=== PATIENT | female | born 1970 | race Caucasian/White ===

== ENCOUNTER → 2017-12-19 | Outpatient (CLI) | payer OTHER | LOC: M.ULTRA 14:58 | DX: N60.02 Solitary cyst of left breast (principal) ==

== ENCOUNTER → 2018-12-18 | Outpatient (CLI) | payer OTHER | LOC: M.RAD 11-29 12:13 → M.ULTRA 13:55 → M.RAD 14:50 → M.ULTRA 12-19 11:30 → M.RAD 12-19 13:20 | DX: Z12.31 Encounter for screening mammogram for malignant neoplasm of breast (principal); N39.3 Stress incontinence (female) (male) ==

== ENCOUNTER 2019-08-17 16:44 | Emergency (ER) | payer OTHER ==
[~2019-08-17] VITALS: Ht 152.4 cm; Wt 77.1 kg
[2019-08-17] MEDS ORDERED: ZONEGRAN100 MG (16:54)
[2019-08-17] MEDS ORDERED: LO LOESTRIN FE1 EACH PO (16:54)
[2019-08-17] MEDS ORDERED: LAMICTAL100 MG PO (16:54)
[2019-08-17] MEDS ORDERED: TESSALON PERLE100 M1 PO (16:55)
[2019-08-17] MEDS ORDERED: IPRAT-ALBUT 0.5-3 ML (16:55)
[2019-08-17] MEDS ORDERED: DORYX MPC120 MG PO (16:56)
[2019-08-17] MEDS ORDERED: METHYLPREDNISOL32 MG PO (16:56)
[2019-08-17] MEDS ORDERED: PROAIR HFA8.5 GM INH (16:56)
[2019-08-17] MEDS ORDERED: NORTRIPTYLINE H10 M1 (16:57)
[2019-08-17] MEDS ORDERED: OMEPRAZOLE 20 M20 M1 PO (16:57)
[2019-08-17 17:41] LABS: ABSOLUTE BASOPHILS 0.1 thou/uL (0.0-0.2); ABSOLUTE EOSINOPHILS 0.1 thou/uL (0.0-0.7); ABSOLUTE LYMPHOCYTES 2.8 thou/uL (0.8-5.3); ABSOLUTE MONOCYTES 0.8 thou/uL (0.0-1.2); ABSOLUTE NEUTROPHILS 10.6 thou/uL (1.6-8.1); BASOPHILS 0.5 %; EOSINOPHILS 0.4 %; HEMOGLOBIN 15.1 gm/dL (12.0-15.0); LYMPHOCYTES 19.7 %; MCHC 34.2 g/dL (28.0-37.0); MCV 90.5 fL (80.0-100.0); MONOCYTES 5.9 %; MPV 6.6 fl. (7.2-11.1); NUCLEATED RBCS 0 /100WBC; PLATELET COUNT* 468 thou/uL (150-400); POLYS 73.5 %; RBC 4.86 mil/uL (4.20-5.00); RDW-CV 12.6 % (10.5-14.5); WBC 14.4 thou/uL (4.0-11.0)
[2019-08-17 17:52] LABS: ALBUMIN 3.8 g/dL (3.4-5.0); CALCIUM 8.2 mg/dL (8.5-10.1); CREATININE 0.8 mg/dL (0.6-1.3); POTASSIUM 3.6 mmol/L (3.5-5.1); TOTAL BILIRUBIN 0.3 mg/dL (<0.1-1.0); TOTAL PROTEIN 7.7 g/dL (6.4-8.2)
[2019-08-17 18:11] LABS: URINE BILIRUBIN NEGATIVE (Negative); URINE BLOOD NEGATIVE (Negative); URINE CLARITY CLEAR; URINE COLOR STRAW; URINE GLUCOSE-RANDOM NEGATIVE (Negative); URINE KETONES NEGATIVE (Negative); URINE LEUKOCYTES 1+ (Negative); URINE NITRITE NEGATIVE (Negative); URINE PROTEIN NEGATIVE (Negative); URINE SPECIFIC GRAVITY < 1.000 (1.005-1.030); URINE UROBILINOGEN 0.2 E.U./dl (0.2-1.0)
[2019-08-17 18:20] LABS: SQUAMOUS >10 Many /LPF (0-3)
[2019-08-17 18:21] LABS: BACTERIA 1-9 Few /HPF (None Seen); MUCUS None Seen strn/LPF (None Seen); URINE RBC 0-2 Rare /HPF (0-2); URINE WBC 0-5 Rare /HPF (0-5)
[2019-08-17 18:22] LABS: CASTS None Seen /LPF (None Seen); CRYSTALS None Seen /LPF (None Seen)
[2019-08-17] MEDS ORDERED: ROBAXIN 750 MG750 MG PO (19:10)
[2019-08-17] MEDS ORDERED: ZOFRAN ODT4 MG PO (19:10)
[2019-08-17] MEDS ORDERED: MOBIC7.5 MG PO (19:10)
[2019-08-17 19:30] VITALS: BP 155/94
--- NOTE | 2019-08-18 10:01 | EKG ---
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
== END 2019-08-17 19:30 | disposition home or self-care (01) ==
LOC: M.ERS 16:44
PROVIDERS: Physician Assistant
DX: M62.830 Muscle spasm of back (principal); R10.10 Upper abdominal pain, unspecified; R05 Cough; Z90.49 Acquired absence of other specified parts of digestive tract; Z87.442 Personal history of urinary calculi

== ENCOUNTER → 2020-10-26 | Outpatient (CLI) | payer OTHER ==
[~2020-10-26] MED LIST: DORYX MPC120 MG PO; IPRAT-ALBUT 0.5-3 ML; LAMICTAL100 MG PO; LO LOESTRIN FE1 EACH PO; METHYLPREDNISOL32 MG PO; MOBIC7.5 MG PO; NORTRIPTYLINE H10 M1; OMEPRAZOLE 20 M20 M1 PO; PROAIR HFA8.5 GM INH; ROBAXIN 750 MG750 MG PO; TESSALON PERLE100 M1 PO; ZOFRAN ODT4 MG PO; ZONEGRAN100 MG
== END ==
LOC: M.RAD 14:45
PROVIDERS: ATTEND Physician Assistant
DX: Z12.31 Encounter for screening mammogram for malignant neoplasm of breast (principal)